=== PATIENT | male | born 1940 | race Caucasian/White ===

== ENCOUNTER 2017-01-06 10:03 | Emergency (ER) | payer MEDICARE, BC ==
[~2017-01-06] VITALS: Ht 167.6 cm; Wt 79.6 kg
[~2017-01-06 10:03] MED LIST: ATOR10; CLOP75 PO; DIOV160T60 PO; FISH1000 PO; HYDR-3533 PO; METO50TA PO; ZOFR4TAB3 SL
[2017-01-06 10:04] VITALS: BP 166/71; PULSE 65; RESP 18; TEMP 97.5; O2SAT 98
[2017-01-06] MEDS ORDERED: DIOV160T6 PO (10:18)
[2017-01-06] MEDS ORDERED: METO-309 PO (10:18)
[2017-01-06] MEDS ORDERED: PLAV75TA29 PO (10:18)
[2017-01-06] MEDS ORDERED: LIPI20TA PO (10:18)
--- NOTE | 2017-01-06 10:21 | PD ---
HPI Chief Complaint: Injury Time Seen by Provider: 10:18 Travel History International Travel<30 days: No Contact w/Intl Traveler<30days: No Traveled to known affect area: No History of Present Illness HPI This 76-year-old male is complaining of pain in his right ankle. He was at the gym yesterday that he had some pain at that time though did not recall injuring it. He noted some pain as he was walking out of the gym. He went to bed last night and when he woke up this morning the ankle was more swollen and painful. He has not had fever or chills. PFSH Past Medical History Blood Disorders: No Anxiety: No Depression: No Cancer: No Cardiovascular Problems: Yes (right carotid ) Chemotherapy: No Diminished Hearing: No Endocrine: No Genitourinary: Yes (artificial urinary sphincter) Hypertension: Yes Immune Disorder: No Implanted Vascular Access Dvce: Yes Musculoskeletal: Yes Neurologic: No Psychiatric: No Reproductive: No Respiratory: No Radiation Therapy: No ?: Not Past Surgical History Abdominal Surgery: No Cardiac Surgery: Yes (RIGTH CAROTID ENDARTERECTOMY) Coronary Artery Bypass Graft: Yes (2009) Ear Surgery: No Endocrine Surgery: No Eye Surgery: Yes (caratact) Genitourinary Surgery: No Gynecologic Surgery: No Oral Surgery: No Other Surgery: Yes Social History Alcohol Use: Yes (3-4 glasses a week) Tobacco Use: No Substance Use: No Allergies-Medications (Allergen,Severity, Reaction): Coded Allergies: No Known Allergies (Verified , 01/06/17) Reported Meds & Prescriptions Reported Meds & Active Scripts Active Reported Plavix (Clopidogrel Bisulfate) 75 Mg Tab 75 Mg PO DAILY Lopressor (Metoprolol Tartrate) 50 Mg Tab 50 Mg PO BID Diovan (Valsartan) 160 Mg Tab 160 Mg PO DAILY Lipitor (Atorvastatin Calcium) 20 Mg Tab 20 Mg PO HS Review of Systems General / Constitutional: No: Fever, Chills Eyes: No: Diploplia Cardiovascular: No: Chest Pain or Discomfort Respiratory: No: Cough, Shortness of Breath Gastrointestinal: No: Nausea, Vomiting Musculoskeletal: Positive: Arthralgias, Edema, Pain, No: Myalgias Skin: No Rash, No Itching Neurologic: No: Weakness, Dizziness Endocrine: No: Heat Intolerance, Cold Intolerance Hematologic/Lymphatic: No: Easy Bruising Physical Exam Narrative GENERAL a little male SKIN: Focused skin assessment warm/dry. HEAD: Atraumatic. Normocephalic. EYES: Pupils equal and round. No scleral icterus. No injection or drainage. ENT: No nasal bleeding or discharge. Mucous membranes pink and moist. NECK: Trachea midline. No JVD. MUSCULOSKELETAL: Examination of the right ankle shows swelling and tenderness of the anterolateral aspect of the ankle. There is no warmth or erythema. NEUROLOGICAL: Awake and alert. No obvious cranial nerve deficits. Motor grossly within normal limits. Normal speech. PSYCHIATRIC: Appropriate mood and affect; insight and judgment normal. Data Data Last Documented VS Vital Signs Date Time Temp Pulse Resp B/P (MAP) Pulse Ox O2 Delivery O2 Flow Rate FiO2 01/06/17 10:04 97.5 65 18 166/71 (102) 98 Orders Orders Ankle, Complete ([id number]) (01/06/17 10:18) [facility] Medical Decision Making Medical Screen Exam Complete: Yes Emergency Medical Condition: Yes Medical Record Reviewed: Yes Differential Diagnosis Differential includes ankle sprain, ankle fracture Narrative Course X-ray of the ankle is negative for fracture. Impression is ankle sprain. He will be placed in a stirrup splint and I recommended elevation and ice. Minimize weightbearing. Tylenol for pain Diagnosis Primary Impression: Ankle sprain Qualified Codes: S93.401A - Sprain of unspecified ligament of right ankle, initial encounter Disposition: 01 DISCHARGE HOME Condition: Stable Miki Omalley MD Jan 06, 2017 10:21
--- NOTE | 2017-01-06 10:58 | RADRPT ---
EXAM DATE/TIME: 01/06/2017 10:22 [facility] COMPARISON: No previous studies available for comparison. INDICATIONS : Right ankle pain on lateral side. No known injury. MEDICAL HISTORY : None. SURGICAL HISTORY : None. ENCOUNTER: Initial ACUITY: 2 days PAIN SCORE: 7/10 LOCATION: Right lateral ankle. FINDINGS: Three view exam was performed of the right ankle. The bony structures are in normal alignment. No e vidence of fracture, dislocation, or soft tissue swelling. The ankle mortise is intact. No radiopaq ue foreign bodies are seen. Bony mineralization is normal. CONCLUSION: Negative for fracture. Taurus Tyler MD FACR on January 06, 2017 at 10:56 Board Certified Radiologist. This report was verified electronically.
== END 2017-01-06 11:25 | disposition home or self-care (01) ==
LOC: PHEFT 10:03
DX: S93.401A Sprain of unspecified ligament of right ankle, initial encounter (principal); X58.XXXA Exposure to other specified factors, initial encounter
CPT/HCPCS: 73610; 99283; L1906

== ENCOUNTER 2017-05-07 17:28 | Emergency (ER) | payer MEDICARE, BC ==
[~2017-05-07] VITALS: Ht 165.1 cm; Wt 80.0 kg
[~2017-05-07 17:28] MED LIST changes: -ATOR10; -CLOP75 PO; +DIOV160T6 PO; -DIOV160T60 PO; -FISH1000 PO; -HYDR-3533 PO; +LIPI20TA PO; +METO-309 PO; -METO50TA PO; +PLAV75TA29 PO; -ZOFR4TAB3 SL
[2017-05-07 17:37] VITALS: BP 193/93; PULSE 67; RESP 16; TEMP 97.9; O2SAT 95
[2017-05-07] MEDS ORDERED: METO50TA PO (17:53)
[2017-05-07] MEDS ORDERED: FISH1000 (17:53)
[2017-05-07] MEDS ORDERED: VALS160T6 PO (17:53)
[2017-05-07] MEDS ORDERED: CENTCHW4 CHEW (17:53)
[2017-05-07] MEDS ORDERED: VITA400T20 (17:53)
[2017-05-07] MEDS ORDERED: CEPH250C PO (17:54)
[2017-05-07] MEDS ORDERED: cloNIDine HCL 0.1 MG TAB PO ONE (18:45)
--- NOTE | 2017-05-07 18:58 | PD ---
HPI Chief Complaint: Abnormal Results Time Seen by Provider: 18:26 Travel History International Travel<30 days: No Contact w/Intl Traveler<30days: No Traveled to known affect area: No History of Present Illness HPI 76yo M presented to the ED with elevated BP. Pt reports that last he had a urology surgery at 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 After the surgery, he had an elevated BP, but his urologist told him it was nothing to worry about with his recent stress of surgery. His BP has remained elevated in the 190s/90s with at home readings. Prior to his surgery during his cardiac clearance, the physician noted a decrease in his sodium and took him off of his HCTZ without an alternative. The pt has an cardiac history with a CABG in 2009, a R endarterectomy in 2008 and HTN. Pt reports head and eye pressure. He denies any nausea, vomiting, blurred vision, chest pain, SOB, numbness or weakness. Modifying Factors: None Associated Signs & Symptoms: Elevated blood pressure Risk Factors: Chronic hypertension PFSH Past Medical History Blood Disorders: No Anxiety: No Depression: No Cancer: No Cardiovascular Problems: Yes (right carotid ) Chemotherapy: No Diminished Hearing: No Endocrine: No Genitourinary: Yes (artificial urinary sphincter; failed so pt has worrell in place) Hypertension: Yes Immune Disorder: No Implanted Vascular Access Dvce: Yes Musculoskeletal: Yes Neurologic: No Psychiatric: No Reproductive: No Respiratory: No Radiation Therapy: No Tetanus Vaccination: > 5 Years Influenza Vaccination: Yes Past Surgical History Abdominal Surgery: No Cardiac Surgery: Yes (RIGHT CAROTID ENDARTERECTOMY) Coronary Artery Bypass Graft: Yes (2009) Ear Surgery: No Endocrine Surgery: No Eye Surgery: Yes (caratact) Genitourinary Surgery: No Gynecologic Surgery: No Oral Surgery: No Other Surgery: Yes Social History Alcohol Use: Yes (3-4 glasses a week) Tobacco Use: No (quit 30-40 years ago) Substance Use: No Allergies-Medications (Allergen,Severity, Reaction): Coded Allergies: No Known Allergies (Verified Adverse Reaction, Unknown, 05/07/17) Reported Meds & Prescriptions Reported Meds & Active Scripts Active Reported Cephalexin 250 Mg Cap 250 Mg PO BID Fish Oil ([place]-3 Fatty Acids) 340 Mg-1,000 Mg Cap 1,200 Vitamin E (Vitamin E Mixed) 400 Unit Tablet Centrum (Multiple Vitamins W/ Minerals) 1 Chew 1 Tab CHEW DAILY Metoprolol Tartrate 50 Mg Tab 50 Mg PO BID Valsartan-Hydrochlorothiazide 160-25 Mg Tab 1 Tab PO DAILY Plavix (Clopidogrel Bisulfate) 75 Mg Tab 75 Mg PO DAILY Lopressor (Metoprolol Tartrate) 50 Mg Tab 50 Mg PO BID Diovan (Valsartan) 160 Mg Tab 160 Mg PO DAILY Lipitor (Atorvastatin Calcium) 20 Mg Tab 20 Mg PO HS Review of Systems Except as stated in HPI: all other systems reviewed are Neg Physical Exam Narrative GENERAL: 76yo W/M who is well-developed and well nourished. Alert and oriented x3. SKIN: Warm and dry. HEAD: Atraumatic. Normocephalic. NECK: Trachea midline. No JVD. Supple. CARDIOVASCULAR: Regular rate and rhythm. Dextrocardia. No carotid bruits. Radial and pedal pulses equal and strong. Incisional scar noted from CABG. RESPIRATORY: No accessory muscle use. Clear to auscultation. Breath sounds equal bilaterally. GASTROINTESTINAL: Abdomen soft, non-tender, nondistended. Hepatic and splenic margins not palpable. MUSCULOSKELETAL: Extremities without clubbing, cyanosis, or edema. LLE smaller compared to the RLE due to previous polio infection. NEUROLOGICAL: Awake and alert. No obvious cranial nerve deficits. Motor grossly within normal limits. Normal speech. PSYCHIATRIC: Appropriate mood and affect; insight and judgment normal. Data Data Last Documented VS Vital Signs Date Time Temp Pulse Resp B/P (MAP) Pulse Ox O2 Delivery O2 Flow Rate FiO2 05/07/17 19:38 63 16 169/94 (119) 94 Room Air 05/07/17 17:37 97.9 Orders Orders Urinary Catheter Management LISA.[id number] (05/07/17 18:11) Electrocardiogram (05/07/17 18:28) Basic Metabolic Panel (Bmp) (05/07/17 18:28) Troponin I (05/07/17 18:28) Clonidine (Catapres) (05/07/17 18:45) Labs Laboratory Tests Test 05/07/17 18:46 Blood Urea Nitrogen 10 MG/DL Creatinine 0.64 MG/DL Random Glucose 104 MG/DL Calcium Level 8.6 MG/DL Sodium Level 129 MEQ/L Potassium Level 3.1 MEQ/L Chloride Level 89 MEQ/L Carbon Dioxide Level 32.3 MEQ/L Anion Gap 8 MEQ/L Estimat Glomerular Filtration Rate 121 ML/MIN Troponin I LESS THAN 0.02 NG/ML MDM Medical Decision Making Medical Screen Exam Complete: Yes Emergency Medical Condition: Yes Medical Record Reviewed: Yes Interpretation(s) EKG shows normal sinus rhythm at a rate of 68 bpm with sinus arrhythmia. No signs of acute ST-T changes. Laboratory Tests Test 05/07/17 18:46 Sodium Level 129 MEQ/L (136-145) Potassium Level 3.1 MEQ/L (3.5-5.1) Chloride Level 89 MEQ/L (98-107) Carbon Dioxide Level 32.3 MEQ/L (21.0-32.0) Troponin I LESS THAN 0.02 NG/ML Differential Diagnosis Hypertensive urgency versus hypertensive emergency versus renal issues versus metabolic issues Narrative Course Lab work shows low potassium and low sodium which was the reason why he was taken off of his diuretic. At this point, I will keep him off of the HCTZ. EKG did not show any signs of acute ST-T changes. Cardiac enzymes are negative. Patient was given clonidine with improvement in blood pressure. My plan would be to release the patient at this point to follow-up with [facility] tomorrow. He will need to follow-up also with primary care physician and cardiology for reevaluation of blood pressures. He was given clonidine and my plan would be to give him further doses as needed for elevated blood pressure. The plan was discussed with him and he states understanding. Diagnosis Primary Impression: Chronic hypertension Additional Impressions: Hyponatremia Hypokalemia Med/Other Pt SpecificInfo: Prescription(s) given Scripts Clonidine (Clonidine) 0.1 Mg Tab 0.1 MG PO BID Y for SBP> OR = 180, DBP> OR = 100, #10 TAB 0 Refills Prov: Radha Avitia MD 05/07/17 Disposition: 01 DISCHARGE HOME Condition: Stable Radha Avitia MD May 07, 2017 18:58
[2017-05-07 19:15] LABS: BICARBONATE 32.3 MEQ/L (21.0-32.0); BLOOD UREA NITROGEN 10 MG/DL (7-18); CALCIUM 8.6 MG/DL (8.5-10.1); GLUCOSE,RANDOM 104 MG/DL (74-106)
[2017-05-07 19:19] LABS: CREATININE 0.64 MG/DL (0.60-1.30); GLOMERULAR FILTRATION RATE 121 ML/MIN (>89)
[2017-05-07 19:23] LABS: TROPONIN I LESS THAN 0.02 NG/ML (0.02-0.05)
[2017-05-07 19:34] LABS: CHLORIDE 89 MEQ/L (98-107); SODIUM (NA) 129 MEQ/L (136-145)
[2017-05-07 19:38] VITALS: BP 169/94; PULSE 63; RESP 16; O2SAT 94
[2017-05-07] MEDS ORDERED: CLON0.1T PO (19:49)
--- NOTE | 2017-05-08 14:58 | EKG ---
Date Performed: 05/07/2017 Time Performed: 18:38:05 PTAGE: 76 years EKG: Sinus rhythm WITH SINUS ARRHYTHMIA BORDERLINE LEFT AXIS DEVIATION Since previous tracing, no significant change n oted BORDERLINE ECG PREVIOUS TRACING : 09/05/2011 00.09 DOCTOR: Aldair Sanchez Interpretating Date/Time 05/08/2017 14:56:48
== END 2017-05-07 20:05 | disposition home or self-care (01) ==
LOC: PHED 17:28
DX: I10 Essential (primary) hypertension (principal); E87.1 Hypo-osmolality and hyponatremia; E87.6 Hypokalemia; I49.8 Other specified cardiac arrhythmias; Z95.1 Presence of aortocoronary bypass graft
CPT/HCPCS: 80048; 84484; 93005; 99284